=== PATIENT | male | born 1990 | race Caucasian/White ===

== ENCOUNTER → 2016-06-13 | Outpatient (CLI) | payer MEDICARE, OTHER ==
[~2016-06-13] MED LIST: ABILIFY30 MG PO; CATAPRES0.2 MG PO; DESYREL 50MG50 MG PO; LATUDA80 MG PO; MINIPRESS2 MG PO; MULTI VITAMINS1 TAB PO; NO HOME MEDICATIONS; OMEGA-3 1000 MG1 CAP PO; PHENERGAN W/CO120 ML; TOPROL XL100 MG PO; ZOLOFT 100MG100 MG PO
== END ==
LOC: BHSO 13:30
DX: F25.0 Schizoaffective disorder, bipolar type (principal)

== ENCOUNTER → 2016-07-18 | Outpatient (CLI) | payer MEDICARE, OTHER | LOC: BHSO 12:56 | DX: F25.1 Schizoaffective disorder, depressive type (principal) ==

== ENCOUNTER → 2016-08-15 | Outpatient (CLI) | payer MEDICARE, OTHER | LOC: BHSO 08:36 | DX: F25.0 Schizoaffective disorder, bipolar type (principal) ==

== ENCOUNTER → 2016-09-14 | Outpatient (CLI) | payer MEDICARE, OTHER | LOC: BHSO 14:19 | DX: F25.0 Schizoaffective disorder, bipolar type (principal) ==

== ENCOUNTER → 2016-10-12 | Outpatient (CLI) | payer MEDICARE, OTHER | LOC: BHSO 10:27 | DX: F25.1 Schizoaffective disorder, depressive type (principal) ==

== ENCOUNTER 2016-11-08 06:58 | Inpatient (IN) | payer MEDICARE, OTHER, MEDICAID ==
[~2016-11-08] VITALS: Ht 175.3 cm; Wt 97.8 kg
[2016-11-08] VITALS (26 sets, daily range): BP systolic 125–133; BP diastolic 71–81; PULSE 92–120; TEMP 98–98.6; O2SAT 92–99
[~2016-11-08 06:58] MED LIST changes: -ABILIFY30 MG PO; -MINIPRESS2 MG PO; -OMEGA-3 1000 MG1 CAP PO
[2016-11-08] MEDS ORDERED: OMEGA-3 1000 MG1 CAP PO (07:50)
[2016-11-08 07:58] LABS: BASO % 0.2 % (0.0-2.0); EOS % 0.1 % (0-4.0); GRAN # 12.9 (1.4-6.5); GRAN % 86.4 % (42.2-75.2); HEMATOCRIT 46.5 % (42.0-52.0); HEMOGLOBIN 16.8 g/dl (13.5-18.0); LYMPH # 1.4 (1.2-3.4); LYMPH % 9.5 % (20.0-51.0); MEAN CELL VOLUME 84 fl (80.0-100.0); MEAN CORPUSCULAR HEMOGLOBIN 31 pg (27.0-31.0); MEAN CORPUSCULAR HGB CONC 36 g/dl (33.0-37.0); MEAN PLATELET VOLUME 8.3 fl (7.4-10.4); MONO # 0.5 (0.1-0.6); MONO % 3.3 % (1.7-9.3); PLATELET COUNT 222 K/mm3 (130-400); RED BLOOD COUNT 5.51 M/mm3 (4.20-5.60); REDCELL DISTRIBUTION WIDTH-CV 12.4 % (11.5-14.5); WHITE BLOOD COUNT 14.9 K/mm3 (4.8-10.8)
[2016-11-08 08:00] LABS: ARTERIAL BLD GAS O2 SATURATION 96.9 % (92-100); ARTERIAL BLD GAS TCO2 CT 20.2; ARTERIAL BLOOD GAS BASE EXCESS -2.5 (-2-2); ARTERIAL BLOOD GAS HCO3 19.4 meq/L (22-26); ARTERIAL BLOOD GAS PO2 86.7 mmHg (80-100); ARTERIAL BLOOD GAS pH 7.47 (7.35-7.45); OXYHEMOGLOBIN 96.1 %
[2016-11-08 08:01] LABS: ALLEN TEST YES; ALLENS TEST RESULT PASS; ATS? YES
[2016-11-08 08:10] LABS: ADJUSTED CALCIUM 9.5 mg/dL (8.4-10.2); ALANINE AMINOTRANSFERASE 58 U/L (21-72); ALBUMIN 4.3 gm/dL (3.5-5.0); ALKALINE PHOSPHATASE 102 U/L (50-136); ANION GAP 18 mmol/L (7-16); BILIRUBIN,TOTAL 0.5 mg/dL (0.0-1.0); BLOOD UREA NITROGEN 16 mg/dL (9-20); CALCIUM 9.7 mg/dL (8.4-10.2); CARBON DIOXIDE 20 mmol/L (22-30); CHLORIDE 103 mmol/L (98-107); CREATININE, serum 1.36 mg/dL (0.66-1.25); GLUCOSE 124 mg/dL (74-106); POTASSIUM 3.8 mmol/L (3.4-5.0); SODIUM 141 mmol/L (137-145); TOTAL PROTEIN 7.8 gm/dL (6.4-8.2)
[2016-11-08 08:13] LABS: ACETAMINOPHEN < 10 ug/mL (10-30)
[2016-11-08 08:34] LABS: SALICYLATE 70.5 mg/dL
[2016-11-08 08:37] LABS: AMPHETAMINE URINE NEGATIVE; BARBITURATES URINE NEGATIVE; BENZODIAZEPINES URINE NEGATIVE; BUPRENORPHINE URINE NEGATIVE; METHADONE URINE NEGATIVE; OPIATES URINE NEGATIVE; OXYCODONE URINE NEGATIVE; PHENCYCLIDINE URINE NEGATIVE; PROPOXYPHENE URINE NEGATIVE; THC CANNABINOIDS URINE NEGATIVE
[2016-11-08 12:10] LABS: INR 1.1 (0.8-3.0); PROTHROMBIN TIME 11.8 SECONDS (9.7-12.8)
[2016-11-08 12:13] LABS: PARTIAL THROMBOPLASTIN TIME 28.4 SECONDS (26.0-37.0)
[2016-11-08 12:15] LABS: PH 6 (5-8); SQUAMOUS EPITHELIAL None Seen /hpf; URINE APPEARANCE Clear; URINE BACTERIA Rare /hpf; URINE BILIRUBIN Negative (NEGATIVE); URINE BLOOD 1+ (NEGATIVE); URINE COLOR Yellow; URINE GLUCOSE Negative (NEGATIVE); URINE KETONE Negative (NEGATIVE); URINE UROBILINOGEN Negative (NEGATIVE); URINE WBC 0-2 /hpf
[2016-11-08 12:19] LABS: CALCIUM 9.7 mg/dL (8.4-10.2); CREATININE, serum 1.8 mg/dL (0.66-1.25); POTASSIUM 3.9 mmol/L (3.4-5.0)
[2016-11-08 12:30] LABS: SALICYLATE 68.5 mg/dL
[2016-11-08 14:19] LABS: PH 6 (5-8); SQUAMOUS EPITHELIAL None Seen /hpf; URINE APPEARANCE Clear; URINE BACTERIA None Seen /hpf; URINE BILIRUBIN Negative (NEGATIVE); URINE BLOOD Negative (NEGATIVE); URINE COLOR Yellow; URINE GLUCOSE 1+ (NEGATIVE); URINE KETONE Negative (NEGATIVE); URINE RBC 0-2 /hpf; URINE UROBILINOGEN Negative (NEGATIVE); URINE WBC 0-2 /hpf
[2016-11-08 14:28] LABS: CALCIUM 9.3 mg/dL (8.4-10.2); CREATININE, serum 1.91 mg/dL (0.66-1.25); POTASSIUM 3.9 mmol/L (3.4-5.0)
[2016-11-08] MEDS ORDERED: ABILIFY30 MG PO (15:02)
[2016-11-08] MEDS ORDERED: MINIPRESS2 MG PO (15:02)
[2016-11-08 15:35] LABS: SALICYLATE 65.1 mg/dL
[2016-11-08 17:38] LABS: PH 7 (5-8); SQUAMOUS EPITHELIAL None Seen /hpf; URINE APPEARANCE Clear; URINE BACTERIA None Seen /hpf; URINE BILIRUBIN Negative (NEGATIVE); URINE BLOOD Negative (NEGATIVE); URINE COLOR Straw; URINE GLUCOSE 1+ (NEGATIVE); URINE KETONE Negative (NEGATIVE); URINE RBC 0-2 /hpf; URINE UROBILINOGEN Negative (NEGATIVE); URINE WBC 0-2 /hpf
[2016-11-08 18:21] LABS: PH 6 (5-8); SQUAMOUS EPITHELIAL 0-2 /hpf; URINE APPEARANCE Clear; URINE BACTERIA None Seen /hpf; URINE BILIRUBIN Negative (NEGATIVE); URINE BLOOD Negative (NEGATIVE); URINE COLOR Yellow; URINE GLUCOSE 1+ (NEGATIVE); URINE KETONE Negative (NEGATIVE); URINE RBC 0-2 /hpf; URINE UROBILINOGEN Negative (NEGATIVE)
[2016-11-08 22:19] LABS: PH 6 (5-8); SQUAMOUS EPITHELIAL None Seen /hpf; URINE APPEARANCE Clear; URINE BACTERIA None Seen /hpf; URINE BILIRUBIN Negative (NEGATIVE); URINE BLOOD Negative (NEGATIVE); URINE COLOR Straw; URINE GLUCOSE 1+ (NEGATIVE); URINE KETONE Negative (NEGATIVE); URINE RBC 0-2 /hpf; URINE UROBILINOGEN Negative (NEGATIVE)
[2016-11-09] VITALS (293 sets, daily range): BP systolic 94–137; BP diastolic 61–76; PULSE 82–99; TEMP 97.7–98.3; O2SAT 60–100
[2016-11-09 03:34] LABS: PH 7 (5-8); SQUAMOUS EPITHELIAL 0-2 /hpf; URINE APPEARANCE Clear; URINE BACTERIA Rare /hpf; URINE BILIRUBIN Negative (NEGATIVE); URINE BLOOD 2+ (NEGATIVE); URINE COLOR Straw; URINE GLUCOSE 1+ (NEGATIVE); URINE KETONE Trace (NEGATIVE); URINE UROBILINOGEN Negative (NEGATIVE); URINE WBC 0-2 /hpf
[2016-11-09 05:19] LABS: PH 7 (5-8); SQUAMOUS EPITHELIAL None Seen /hpf; URINE APPEARANCE Clear; URINE BACTERIA None Seen /hpf; URINE BILIRUBIN Negative (NEGATIVE); URINE BLOOD Negative (NEGATIVE); URINE COLOR Straw; URINE GLUCOSE 1+ (NEGATIVE); URINE KETONE Trace (NEGATIVE); URINE RBC 0-2 /hpf; URINE UROBILINOGEN Negative (NEGATIVE)
[2016-11-09 06:32] LABS: BASO % 0.2 % (0.0-2.0); EOS % 0.1 % (0-4.0); GRAN # 9.2 (1.4-6.5); GRAN % 73.5 % (42.2-75.2); HEMATOCRIT 42.1 % (42.0-52.0); HEMOGLOBIN 14.9 g/dl (13.5-18.0); LYMPH # 2.1 (1.2-3.4); LYMPH % 16.4 % (20.0-51.0); MEAN CELL VOLUME 85 fl (80.0-100.0); MEAN CORPUSCULAR HEMOGLOBIN 30 pg (27.0-31.0); MEAN CORPUSCULAR HGB CONC 35 g/dl (33.0-37.0); MEAN PLATELET VOLUME 8.3 fl (7.4-10.4); MONO # 1.2 (0.1-0.6); MONO % 9.4 % (1.7-9.3); PLATELET COUNT 188 K/mm3 (130-400); RED BLOOD COUNT 4.93 M/mm3 (4.20-5.60); WHITE BLOOD COUNT 12.5 K/mm3 (4.8-10.8)
[2016-11-09 06:42] LABS: ADJUSTED CALCIUM 7.6 mg/dL (8.4-10.2); ALBUMIN 3.7 gm/dL (3.5-5.0); BILIRUBIN,TOTAL 0.7 mg/dL (0.0-1.0); CALCIUM 7.4 mg/dL (8.4-10.2); CREATININE, serum 2.37 mg/dL (0.66-1.25); TOTAL PROTEIN 6.6 gm/dL (6.4-8.2)
[2016-11-09 06:47] LABS: POTASSIUM 2.8 mmol/L (3.4-5.0); SALICYLATE 39.6 mg/dL
[2016-11-09 07:07] LABS: PH 7 (5-8); URINE APPEARANCE Clear; URINE BACTERIA None Seen /hpf; URINE BILIRUBIN Negative (NEGATIVE); URINE BLOOD Negative (NEGATIVE); URINE COLOR Straw; URINE GLUCOSE 1+ (NEGATIVE); URINE KETONE Trace (NEGATIVE); URINE RBC 0-2 /hpf; URINE UROBILINOGEN Negative (NEGATIVE)
[2016-11-09 08:39] LABS: BASO % 0.2 % (0.0-2.0); GRAN # 7.7 (1.4-6.5); GRAN % 72.3 % (42.2-75.2); HEMOGLOBIN 14.9 g/dl (13.5-18.0); LYMPH % 18.3 % (20.0-51.0); MEAN CELL VOLUME 86 fl (80.0-100.0); MEAN CORPUSCULAR HEMOGLOBIN 30 pg (27.0-31.0); MEAN CORPUSCULAR HGB CONC 36 g/dl (33.0-37.0); MEAN PLATELET VOLUME 8.2 fl (7.4-10.4); MONO # 0.9 (0.1-0.6); MONO % 8.8 % (1.7-9.3); PLATELET COUNT 182 K/mm3 (130-400); REDCELL DISTRIBUTION WIDTH-CV 13.1 % (11.5-14.5); WHITE BLOOD COUNT 10.7 K/mm3 (4.8-10.8)
[2016-11-09 09:05] LABS: ADJUSTED CALCIUM 7.6 mg/dL (8.4-10.2); ALBUMIN 3.6 gm/dL (3.5-5.0); BILIRUBIN,TOTAL 0.8 mg/dL (0.0-1.0); CALCIUM 7.3 mg/dL (8.4-10.2); CREATININE, serum 2.33 mg/dL (0.66-1.25); TOTAL PROTEIN 6.7 gm/dL (6.4-8.2)
[2016-11-09 09:07] LABS: POTASSIUM 2.7 mmol/L (3.4-5.0)
[2016-11-09 09:55] LABS: ARTERIAL BLD GAS O2 SATURATION 92.4 % (92-100); ARTERIAL BLD GAS TCO2 CT 33.7; ARTERIAL BLOOD GAS BASE EXCESS 9.8 (-2-2); ARTERIAL BLOOD GAS HCO3 32.6 meq/L (22-26); ARTERIAL BLOOD GAS PHT 7.56 C (7.35-7.45); ARTERIAL BLOOD GAS PO2 61.2 mmHg (80-100); ARTERIAL BLOOD GAS PO2T 61.2 (80-100); ARTERIAL BLOOD GAS pH 7.56 (7.35-7.45); OXYHEMOGLOBIN 91.5 %
[2016-11-09 09:56] LABS: ATS? YES
[2016-11-09 10:40] LABS: PH 7 (5-8); SQUAMOUS EPITHELIAL None Seen /hpf; URINE APPEARANCE Clear; URINE BACTERIA None Seen /hpf; URINE BILIRUBIN Negative (NEGATIVE); URINE BLOOD Negative (NEGATIVE); URINE COLOR Straw; URINE GLUCOSE 1+ (NEGATIVE); URINE KETONE Trace (NEGATIVE); URINE UROBILINOGEN Negative (NEGATIVE)
[2016-11-09 15:09] LABS: PH 8 (5-8); URINE APPEARANCE Clear; URINE BACTERIA None Seen /hpf; URINE BILIRUBIN Negative (NEGATIVE); URINE BLOOD Negative (NEGATIVE); URINE COLOR Straw; URINE GLUCOSE 2+ (NEGATIVE); URINE KETONE Negative (NEGATIVE); URINE UROBILINOGEN Negative (NEGATIVE); URINE WBC 0-2 /hpf
[2016-11-09 15:22] LABS: SQUAMOUS EPITHELIAL 0-2 /hpf
[2016-11-09 16:06] LABS: BILIRUBIN,TOTAL 0.8 mg/dL (0.0-1.0); CREATININE, serum 2.3 mg/dL (0.66-1.25); TOTAL PROTEIN 7.1 gm/dL (6.4-8.2)
[2016-11-09 16:15] LABS: POTASSIUM 2.8 mmol/L (3.4-5.0)
[2016-11-09 16:42] LABS: MAGNESIUM 2.4 mg/dL (1.6-2.3)
[2016-11-10] VITALS (38 sets, daily range): BP systolic 139–154; BP diastolic 73–93; PULSE 84–92; TEMP 97.9–98.9; O2SAT 60–100
[2016-11-10 03:22] LABS: BASO % 0.3 % (0.0-2.0); EOS % 0.2 % (0-4.0); GRAN # 7.6 (1.4-6.5); HEMATOCRIT 42.3 % (42.0-52.0); HEMOGLOBIN 14.7 g/dl (13.5-18.0); LYMPH # 2.5 (1.2-3.4); LYMPH % 22.6 % (20.0-51.0); MEAN CELL VOLUME 87 fl (80.0-100.0); MEAN CORPUSCULAR HEMOGLOBIN 30 pg (27.0-31.0); MEAN CORPUSCULAR HGB CONC 35 g/dl (33.0-37.0); MONO % 8.5 % (1.7-9.3); PLATELET COUNT 185 K/mm3 (130-400); RED BLOOD COUNT 4.84 M/mm3 (4.20-5.60); REDCELL DISTRIBUTION WIDTH-CV 13.2 % (11.5-14.5); WHITE BLOOD COUNT 11.2 K/mm3 (4.8-10.8)
[2016-11-10 03:31] LABS: ADJUSTED CALCIUM 9.1 mg/dL (8.4-10.2); ALBUMIN 3.9 gm/dL (3.5-5.0); CREATININE, serum 2.23 mg/dL (0.66-1.25); POTASSIUM 3.5 mmol/L (3.4-5.0); SALICYLATE 9.6 mg/dL; TOTAL PROTEIN 6.8 gm/dL (6.4-8.2)
[2016-11-10 05:52] LABS: PH 8 (5-8); SQUAMOUS EPITHELIAL None Seen /hpf; URINE APPEARANCE Clear; URINE BACTERIA None Seen /hpf; URINE BILIRUBIN Negative (NEGATIVE); URINE BLOOD Negative (NEGATIVE); URINE COLOR Straw; URINE GLUCOSE 3+ (NEGATIVE); URINE KETONE Trace (NEGATIVE); URINE RBC 0-2 /hpf; URINE UROBILINOGEN Negative (NEGATIVE)
[2016-11-10 05:57] LABS: URINE WBC 0-2 /hpf
[2016-11-10 12:55] LABS: PH 8 (5-8); SQUAMOUS EPITHELIAL None Seen /hpf; URINE APPEARANCE Clear; URINE BACTERIA None Seen /hpf; URINE BILIRUBIN Negative (NEGATIVE); URINE BLOOD Negative (NEGATIVE); URINE COLOR Straw; URINE GLUCOSE 2+ (NEGATIVE); URINE KETONE Trace (NEGATIVE); URINE RBC 0-2 /hpf; URINE UROBILINOGEN Negative (NEGATIVE)
[2016-11-11] VITALS: BP 121/87; PULSE 78; TEMP 98.7
[2016-11-11 04:00] VITALS: PULSE 76; TEMP 98.5
[2016-11-11 05:33] LABS: BASO % 0.2 % (0.0-2.0); EOS % 0.5 % (0-4.0); GRAN % 60.4 % (42.2-75.2); HEMATOCRIT 43.1 % (42.0-52.0); HEMOGLOBIN 14.8 g/dl (13.5-18.0); LYMPH # 2.7 (1.2-3.4); MEAN CELL VOLUME 88 fl (80.0-100.0); MEAN CORPUSCULAR HEMOGLOBIN 30 pg (27.0-31.0); MEAN CORPUSCULAR HGB CONC 34 g/dl (33.0-37.0); MEAN PLATELET VOLUME 7.8 fl (7.4-10.4); MONO # 0.5 (0.1-0.6); MONO % 6.5 % (1.7-9.3); PLATELET COUNT 185 K/mm3 (130-400); RED BLOOD COUNT 4.92 M/mm3 (4.20-5.60); REDCELL DISTRIBUTION WIDTH-CV 12.8 % (11.5-14.5); WHITE BLOOD COUNT 8.3 K/mm3 (4.8-10.8)
[2016-11-11 05:45] LABS: ALBUMIN 4.1 gm/dL (3.5-5.0); BILIRUBIN,TOTAL 1.5 mg/dL (0.0-1.0); CALCIUM 9.1 mg/dL (8.4-10.2); CREATININE, serum 1.59 mg/dL (0.66-1.25); POTASSIUM 3.5 mmol/L (3.4-5.0); TOTAL PROTEIN 7.2 gm/dL (6.4-8.2)
[2016-11-11 08:00] VITALS: BP 146/91; PULSE 93; TEMP 97.9
[2016-11-11 10:28] VITALS: O2SAT 97
== END 2016-11-11 17:45 | DRG 918 ==
LOC: COL.ER 06:58 → ICU 08:39 → MEDICAL 11-09 18:34 → ICU 11-10 14:45
PROVIDERS: Family Medicine; Internal Medicine
DX: T39.012A Poisoning by aspirin, intentional self-harm, initial encounter (principal); N17.9 Acute kidney failure, unspecified; E87.3 Alkalosis; F25.9 Schizoaffective disorder, unspecified; F32.9 Major depressive disorder, single episode, unspecified; E87.6 Hypokalemia
CPT/HCPCS: 90791-AI; 99222-AI; 99232-AI; 99239; C9113; J1644; J2405; J3480

== ENCOUNTER → 2016-12-07 | Outpatient (CLI) | payer MEDICARE, OTHER, MEDICAID ==
[~2016-12-07] MED LIST changes: +ABILIFY30 MG PO; +MINIPRESS2 MG PO; +OMEGA-3 1000 MG1 CAP PO
== END ==
LOC: BHSO 09:35
DX: F25.0 Schizoaffective disorder, bipolar type (principal)

== ENCOUNTER → 2016-12-21 | Outpatient (CLI) | payer MEDICARE, OTHER, MEDICAID | LOC: BHSO 11:26 | DX: F25.0 Schizoaffective disorder, bipolar type (principal) ==

== ENCOUNTER → 2017-03-22 | Outpatient (CLI) | payer MEDICARE, OTHER, MEDICAID | LOC: BHSO 10:40 | DX: F25.0 Schizoaffective disorder, bipolar type (principal) ==

== ENCOUNTER → 2017-05-01 | Outpatient (CLI) | payer MEDICARE, OTHER, MEDICAID | LOC: BHSO 10:00 | DX: F25.0 Schizoaffective disorder, bipolar type (principal) ==

== ENCOUNTER → 2017-06-25 | Outpatient (CLI) | payer MEDICARE, OTHER, MEDICAID | LOC: BHSO 15:15 | DX: F25.0 Schizoaffective disorder, bipolar type (principal) | CPT/HCPCS: G0463 ==

== ENCOUNTER 2017-07-10 13:39 | Emergency (ER) | payer MEDICARE, OTHER ==
[~2017-07-10] VITALS: Ht 175.3 cm; Wt 110.5 kg
[2017-07-10 13:42] VITALS: TEMP 98.7
[2017-07-10] MEDS ORDERED: LEXAPRO 10MG10 MG PO (14:29)
[2017-07-10] MEDS ORDERED: AMOXICILLIN 8751 TAB PO (15:31)
[2017-07-10 16:22] VITALS: BP 134/89; PULSE 105
== END 2017-07-10 16:23 | disposition home or self-care (01) ==
LOC: COL.ER 13:39
DX: K12.2 Cellulitis and abscess of mouth (principal); F31.9 Bipolar disorder, unspecified; F20.9 Schizophrenia, unspecified; Z87.891 Personal history of nicotine dependence
CPT/HCPCS: J1100

== ENCOUNTER → 2017-08-05 | Outpatient (CLI) | payer MEDICARE, OTHER ==
[~2017-08-05] MED LIST changes: +AMOXICILLIN 8751 TAB PO; +LEXAPRO 10MG10 MG PO
== END ==
LOC: BHSO 10:08
DX: F25.0 Schizoaffective disorder, bipolar type (principal)
CPT/HCPCS: G0463

== ENCOUNTER 2017-08-14 09:03 | Emergency (ER) | payer MEDICARE, OTHER ==
[~2017-08-14] VITALS: Ht 175.3 cm; Wt 104.5 kg
[2017-08-14 09:10] VITALS: TEMP 98.8
[2017-08-14 09:47] LABS: BASO % 0.2 % (0.0-2.0); EOS % 0.1 % (0-4.0); GRAN # 6.7 (1.4-6.5); GRAN % 70.4 % (42.2-75.2); HEMATOCRIT 47.7 % (42.0-52.0); HEMOGLOBIN 16.9 g/dl (13.5-18.0); LYMPH % 21.3 % (20.0-51.0); MEAN CELL VOLUME 87 fl (80.0-100.0); MEAN CORPUSCULAR HEMOGLOBIN 31 pg (27.0-31.0); MEAN CORPUSCULAR HGB CONC 35 g/dl (33.0-37.0); MEAN PLATELET VOLUME 8.3 fl (7.4-10.4); MONO # 0.7 (0.1-0.6); MONO % 7.6 % (1.7-9.3); PLATELET COUNT 258 K/mm3 (130-400); RED BLOOD COUNT 5.51 M/mm3 (4.20-5.60); REDCELL DISTRIBUTION WIDTH-CV 12.7 % (11.5-14.5)
[2017-08-14 09:53] LABS: ALANINE AMINOTRANSFERASE 57 U/L (21-72); ALBUMIN 4.6 gm/dL (3.5-5.0); ALKALINE PHOSPHATASE 94 U/L (50-136); ANION GAP 15 mmol/L (7-16); AST,SGOT 28 U/L (15-37); BILIRUBIN,TOTAL 1.5 mg/dL (0.0-1.0); BLOOD UREA NITROGEN 14 mg/dL (9-20); CALCIUM 9.6 mg/dL (8.4-10.2); CARBON DIOXIDE 23 mmol/L (22-30); CHLORIDE 106 mmol/L (98-107); GLUCOSE 122 mg/dL (74-106); POTASSIUM 3.7 mmol/L (3.4-5.0); SODIUM 144 mmol/L (137-145); TOTAL PROTEIN 8.2 gm/dL (6.4-8.2)
[2017-08-14 09:54] LABS: ACETAMINOPHEN < 10 ug/mL (10-30); ALCOHOL(ethanol),MEDICAL < 10 mg/dL; SALICYLATE < 1.0 mg/dL
[2017-08-14 11:26] LABS: COLLECTION METHOD CLEAN CATCH
[2017-08-14 11:44] LABS: MUCOUS Present /lpf; PH 6 (5-8); SQUAMOUS EPITHELIAL 0-2 /hpf; URINE APPEARANCE Clear; URINE BACTERIA None Seen /hpf; URINE BILIRUBIN Negative (NEGATIVE); URINE BLOOD Negative (NEGATIVE); URINE COLOR Amber; URINE GLUCOSE Negative (NEGATIVE); URINE KETONE Negative (NEGATIVE); URINE LEUKOCYTE ESTERASE Negative (NEGATIVE); URINE NITRATE Negative (NEGATIVE); URINE PROTEIN(semi-quant) Negative (NEGATIVE); URINE RBC 0-2 /hpf; URINE UROBILINOGEN >=4.0 mg/dL (NEGATIVE)
[2017-08-14 11:54] LABS: TRICYCLIC ANTIDEPRESS URINE NEGATIVE
[2017-08-14] MEDS ORDERED: CADUET 10 MG-401 TAB (12:40)
[2017-08-14] MEDS ORDERED: CEPHALEXIN500 M1 PO (14:22)
[2017-08-15 02:02] VITALS: BP 150/101; PULSE 96
== END 2017-08-15 02:29 | disposition short-term general hospital (02) ==
LOC: COL.ER 09:03
PROVIDERS: Emergency Medicine
DX: R45.851 Suicidal ideations (principal); F32.9 Major depressive disorder, single episode, unspecified; S51.812A Laceration without foreign body of left forearm, initial encounter; S31.119A Laceration without foreign body of abdominal wall, unspecified quadrant without penetration into peritoneal cavity, initial encounter; Z23 Encounter for immunization; X78.1XXA Intentional self-harm by knife, initial encounter
CPT/HCPCS: J0690; J3010; J7030